=== PATIENT | male | born 1995 | race African-American/Black ===

== ENCOUNTER 2017-10-12 08:07 | Emergency (ER) | payer MEDICAID, OTHER ==
[~2017-10-12] VITALS: Ht 195.6 cm; Wt 128.0 kg
[2017-10-12] MEDS ORDERED: IBUPROFEN 600MG TABLET PO ONE (08:30)
[2017-10-12] MEDS ORDERED: TETANUS, DIPHTHERIA, PERTUSSIS VAC/PF 0.5ML (>7YR OLD) IM ONE (08:30)
[2017-10-12] MEDS ORDERED: LIDOCAINE HCL 1% 20ML VIAL (Pyxis) INJ MC ONE (08:30)
[2017-10-12 08:39] VITALS: BP 165/92
== END 2017-10-12 10:10 | disposition home or self-care (01) ==
LOC: ER 08:07
DX: L03.113 Cellulitis of right upper limb (principal); F12.10 Cannabis abuse, uncomplicated
CPT/HCPCS: 10060; 90471; 90715; 99283; J3490; Z7610